=== PATIENT | male | born 1960 | race Two or more races ===

== ENCOUNTER 2021-01-04 09:15 | Emergency (ER) | payer OTHER ==
[2021-01-04 09:28] VITALS: TEMP 99.4; BMI 23.3
[2021-01-04] MEDS ORDERED: morphine CARPU-JECT 4 MG/1 ML DISP.SYRIN IVPUSH ONE (11:13)
[2021-01-04] MEDS ORDERED: ONDANSETRON 4 MG/2 ML VIAL IVPUSH ONE (11:13)
[2021-01-04] MEDS ORDERED: SODIUM CHLORIDE 1,000 ML IV STA ×2 (11:13→14:25)
[2021-01-04] MEDS ORDERED: ONDANSETRON 4 MG/2 ML VIAL ONE (11:24)
[2021-01-04] MEDS ORDERED: morphine SULFATE 4 MG/ML VIAL ONE (11:24)
[2021-01-04 11:40] LABS: BASO % 0.3 % (0-2.0); EOS % 0.2 % (0-4.5); HEMATOCRIT 32.8 % (35.4-49); HEMOGLOBIN 11.1 GM/dL (11.7-16.9); LYMPH % 17.3 % (8-40); MCH 33.2 pg (25.7-33.7); MCHC 33.9 g/dl (32.0-35.9); MEAN CELL VOLUME 98.1 fl (80-96); MEAN PLT VOLUME 7.2 fl (7.5-11.1); MONO % 13.6 % (3.8-10.2); NEUT % 68.6 % (42.8-82.8); PLATELET COUNT 261 K/MM3 (134-434); RBC 3.35 M/mm3 (4.00-5.60); RDW 12.8 % (11.9-15.9); WHITE BLOOD COUNT 7.5 K/mm3 (4.0-10.0)
[2021-01-04 12:21] LABS: ALBUMIN 3.2 g/dl (3.4-5.0); BILIRUBIN,TOTAL 1.4 mg/dL (0.2-1); BLOOD UREA NITROGEN 13.6 mg/dL (7-18); CALCIUM 8.7 mg/dL (8.5-10.1); CREATININE 0.5 mg/dL (0.55-1.3); TOT PROT 7.5 g/dl (6.4-8.2)
[2021-01-04] MEDS ORDERED: PIPERACILLIN/TAZOB 3.375 GM 3.375 GM in DEXTROSE 5%-WATER - 50 ML IVPB ONE (14:17)
[2021-01-04] MEDS ORDERED: PIPERACILLIN/TAZOB 3.375 GM 3.375 GM/50 ML BAG IVPB ONE (14:26)
[2021-01-04 14:55] VITALS: BP 121/64; PULSE 69
== END 2021-01-04 15:42 | disposition short-term general hospital (02) ==
LOC: JER 09:15
PROC: 3E03329 Introduction of Other Anti-infective into Peripheral Vein, Percutaneous Approach (ICD-10-PCS; principal; 2021-01-04)
PROC: 3E033GC Introduction of Other Therapeutic Substance into Peripheral Vein, Percutaneous Approach (ICD-10-PCS; 2021-01-04)
PROC: 3E0337Z Introduction of Electrolytic and Water Balance Substance into Peripheral Vein, Percutaneous Approach (ICD-10-PCS; 2021-01-04)
DX: S30.22XA Contusion of scrotum and testes, initial encounter (principal)
CPT/HCPCS: 36415; 74177-TC; 80053; 83690; 85025; 99285-25; Q9967